=== PATIENT | male | born 1945 | race Native Hawaiian/Other Pacific Islander ===

== ENCOUNTER 2017-04-08 09:40 | Outpatient (CLI) | payer OTHER ==
[2017-04-08 10:06] LABS: PLATELET COUNT 194 K/uL (142-355)
[2017-04-08 10:30] LABS: SODIUM 138 mmol/L (136-145)
== END 2017-04-08 10:45 | disposition home or self-care (01) ==
LOC: LABW 09:40
PROVIDERS: Internal Medicine
DX: E11.9 Type 2 diabetes mellitus without complications (principal); Z12.5 Encounter for screening for malignant neoplasm of prostate
CPT/HCPCS: 36415; 80053; 80061; 81000; 82043; 82570; 83036; 84153; 84443; 85027